=== PATIENT | male | born 1955 | race African-American/Black ===

== ENCOUNTER 2019-06-21 23:06 | Emergency (ER) | payer OTHER ==
[~2019-06-21] VITALS: Ht 188 cm; Wt 93.0 kg
--- NOTE | 2019-06-21 23:37 | PHYS DOC ---
Adult General Chief Complaint Chief Complaint: LOWER EXT PAIN HPI HPI 63-year-old male presents immersed for complaints of left leg pain. States ongoing for last couple days however further discussion with his states this is a acute on chronic process. He denies injury to his leg. He denies any fever. States he does take cluster medications. His pain is basic from his left hip all the way down to his foot. Worse with ambulation and weightbearing. Normal range of motion on exam without pain. Patient denies any chest pain, shortness breath, nausea, vomiting. Review of Systems Review of Systems Constitutional: Denies fever or chills [] Respiratory: Denies cough or shortness of breath [] Cardiovascular: No additional information not addressed in HPI [] GI: Denies abdominal pain, nausea, vomiting, bloody stools or diarrhea [] Musculoskeletal: Left leg pain Integument: Denies rash or skin lesions [] Neurologic: Denies headache, focal weakness or sensory changes [] All other systems were reviewed and found to be within normal limits, except as documented in this note. Current Medications Current Medications Current Medications Medications (Trade) Dose Ordered Sig/Erica Start Time Stop Time Status Last Admin Dose Admin Acetaminophen/ Hydrocodone Bitart (Lortab 5/325) 1 tab 1X ONCE 06/22/19 00:15 06/22/19 00:16 DC 06/22/19 00:16 1 TAB Allergies Allergies Allergies Coded Allergies Type Severity Reaction Last Updated Verified No Known Drug Allergies 06/22/19 No Physical Exam Physical Exam Constitutional: Well developed, well nourished, no acute distress, non-toxic appearance. [] HENT: Normocephalic, atraumatic, bilateral external ears normal, oropharynx moist, no oral exudates, nose normal. [] Eyes: PERRLA, EOMI, conjunctiva normal, no discharge. [] Cardiovascular:Heart rate regular rhythm, no murmur [] Lungs & Thorax: Bilateral breath sounds clear to auscultation [] Abdomen: Bowel sounds normal, soft, no tenderness, no masses, no pulsatile masses. [] Skin: Warm, dry, no erythema, no rash. [] Extremities: No tenderness, no cyanosis, ROM intact, no edema, pulses appreciated to bilateral lower extremities, warm to the touch[] Neurologic: Alert and oriented X 3, no focal deficits noted. [] Psychologic: Affect normal, judgement normal, mood normal. [] Current Patient Data Vital Signs Vital Signs Date Time Temp Pulse Resp B/P (MAP) Pulse Ox O2 Delivery O2 Flow Rate FiO2 06/22/19 00:16 16 94 Room Air 06/21/19 23:15 98.5 76 160/73 (102) 98.5 Lab Values Laboratory Tests Test 06/21/19 23:40 White Blood Count 5.9 x10^3/uL (4.0-11.0) Red Blood Count 4.54 x10^6/uL (4.30-5.70) Hemoglobin 13.6 g/dL (13.0-17.5) Hematocrit 41.1 % (39.0-53.0) Mean Corpuscular Volume 91 fL (79-100) Mean Corpuscular Hemoglobin 30 pg (25-35) Mean Corpuscular Hemoglobin Concent 33 g/dL (31-37) Red Cell Distribution Width 12.7 % (11.5-14.5) Platelet Count 217 x10^3/uL (140-400) Neutrophils (%) (Auto) 69 % (31-73) Lymphocytes (%) (Auto) 19 % (24-48) L Monocytes (%) (Auto) 9 % (0-9) Eosinophils (%) (Auto) 2 % (0-3) Basophils (%) (Auto) 1 % (0-3) Neutrophils # (Auto) 4.1 x10^3/uL (1.8-7.7) Lymphocytes # (Auto) 1.1 x10^3/uL (1.0-4.8) Monocytes # (Auto) 0.5 x10^3/uL (0.0-1.1) Eosinophils # (Auto) 0.1 x10^3/uL (0.0-0.7) Basophils # (Auto) 0.0 x10^3/uL (0.0-0.2) D-Dimer (Christiana) < 0.27 ug/mlFEU Sodium Level 142 mmol/L (136-145) Potassium Level 4.2 mmol/L (3.5-5.1) Chloride Level 108 mmol/L (98-107) H Carbon Dioxide Level 23 mmol/L (21-32) Anion Gap 11 (6-14) Blood Urea Nitrogen 38 mg/dL (8-26) H Creatinine 1.1 mg/dL (0.7-1.3) Estimated GFR (Cockcroft-Gault) 81.8 BUN/Creatinine Ratio 35 (6-20) H Glucose Level 168 mg/dL (70-99) H Calcium Level 9.5 mg/dL (8.5-10.1) Total Bilirubin Pending Aspartate Amino Transferase (AST) Pending Alanine Aminotransferase (ALT) Pending Alkaline Phosphatase Pending Creatine Kinase Pending Total Protein Pending Albumin Pending Albumin/Globulin Ratio Pending Laboratory Tests 06/21/19 23:40 Laboratory Tests 06/21/19 23:40 EKG EKG [] Radiology/Procedures Radiology/Procedures [facility] [address] [place] [address] IMAGING REPORT Signed PATIENT: RAINE YORK ACCOUNT: [id number] : 1955 LOCATION: ER AGE: 63 SEX: M EXAM STATUS: REG ER ORD. PHYSICIAN: DARA GEORGE MD REASON: left hip pain PROCEDURE: HIP LEFT 2 VIEW Left hip 2 views. HISTORY: Left hip pain 2 views were taken of the left hip. There is no fracture or osseous abnormality. IMPRESSION: 1. Negative left hip. Electronically signed by: Amor Perry MD (06/22/2019 12:04 AM) [facility] DICTATED and SIGNED BY: AMOR PERRY MD DATE: 06/22/19 0004 [] Course & Med Decision Making Course & Med Decision Making Pertinent Labs and Imaging studies reviewed. (See chart for details) []63-year-old male presents immersed for complaints of left leg pain. States ongoing for last couple days however further discussion with his states this is a acute on chronic process. He denies injury to his leg. He denies any fever. States he does take cluster medications. His pain is basic from his left hip all the way down to his foot. Worse with ambulation and weightbearing. Normal range of motion on exam without pain. Patient denies any chest pain, shortness breath, nausea, vomiting. Xray negative Labs reviewed, no acute abnormalities Ddimer negative CPK within normal limits Discussed follow up with PCP as outpatient Dragon Disclaimer Dragon Disclaimer This electronic medical record was generated, in whole or in part, using a voice recognition dictation system. Departure Departure Impression: Primary Impression: Left leg pain Disposition: 01 HOME, SELF-CARE Condition: STABLE Referrals: JEANNIE MCDONALD MD (PCP) Patient Instructions: Musculoskeletal Pain Additional Instructions: Recommend follow up with PCP 3 - 5 days Return to the ER with worsening symptoms, intractable pain, fever, altered ment al status Tylenol/Motrin as needed for pain Tramadol rx provided for pain x 3 days Xray negative for acute fracture ddimer (clot) negative CPK (muscle enzyme) normal Scripts Tramadol Hcl (TRAMADOL HCL) 50 Mg Tablet 50 MG PO Q4HRS PRN for PAIN for 3 Days, #18 TAB Prov: DARA GEORGE MD 06/22/19 DARA GEORGE MD Jun 21, 2019 23:37
[2019-06-21 23:59] LABS: BASO % 1 % (0-3); EOS # 0.1 x10^3/uL (0.0-0.7); EOS % 2 % (0-3); HEMATOCRIT 41.1 % (39.0-53.0); HEMOGLOBIN 13.6 g/dL (13.0-17.5); LYMPH # 1.1 x10^3/uL (1.0-4.8); LYMPH % 19 % (24-48); MEAN CORPUSCULAR HEMOGLOBIN 30 pg (25-35); MEAN CORPUSCULAR HGB CONC 33 g/dL (31-37); MEAN CORPUSCULAR VOLUME 91 fL (79-100); MONO # 0.5 x10^3/uL (0.0-1.1); MONO % 9 % (0-9); NEUT # 4.1 x10^3/uL (1.8-7.7); NEUT % 69 % (31-73); PLATELET COUNT 217 x10^3/uL (140-400); RED BLOOD COUNT 4.54 x10^6/uL (4.30-5.70); RED CELL DISTRIBUTION WIDTH 12.7 % (11.5-14.5); WHITE BLOOD COUNT 5.9 x10^3/uL (4.0-11.0)
[2019-06-22 00:03] LABS: CALCIUM 9.5 mg/dL (8.5-10.1); CREATININE 1.1 mg/dL (0.7-1.3); GFR 81.8; POTASSIUM 4.2 mmol/L (3.5-5.1)
--- NOTE | 2019-06-22 00:07 | RAD ---
Left hip 2 views. HISTORY: Left hip pain 2 views were taken of the left hip. There is no fracture or osseous abnormality. IMPRESSION: 1. Negative left hip. Electronically signed by: Amor Perry MD (06/22/2019 12:04 AM) [facility]
[2019-06-22] MEDS ORDERED: HYDROcodone/APAP 5/325MG 1 TAB TABLET PO ONE (00:15)
[2019-06-22 00:18] LABS: ALBUMIN/GLOBULIN RATIO 1.1 (1.0-1.7); TOTAL BILIRUBIN 0.5 mg/dL (0.2-1.0); TOTAL PROTEIN 7.5 g/dL (6.4-8.2)
[2019-06-22] MEDS ORDERED: TRAM50TA PO (00:26)
[2019-06-22 00:31] VITALS: BP 136/82
== END 2019-06-22 00:50 | disposition home or self-care (01) ==
LOC: ER 23:06
DX: M79.605 Pain in left leg (principal); M25.552 Pain in left hip
CPT/HCPCS: 36415; 73502; 80053; 82550; 83605; 85025; 85379; 99285-25